=== PATIENT | female | born 2000 | race Two or more races ===

== ENCOUNTER 2024-07-18 10:49 | Inpatient (IN) | payer OTHER ==
[~2024-07-18] VITALS: Ht 165.1 cm; Wt 59.0 kg
--- NOTE | 2024-07-18 11:16 | NUR ---
PACIENTE ALERTA Y ORIENTADA X 3. REFIERE 1 MES CON ASMA
[2024-07-18] MEDS ORDERED: PROAIR RESPICL90 MCG (11:17)
[2024-07-18] MEDS ORDERED: BUDESONIDE0.25 MG/2 (11:17)
[2024-07-18] MEDS ORDERED: METHYLPREDNISOLONE SOD SUCC 40 MG VIAL IM ONE (12:00)
[2024-07-18] MEDS ORDERED: MAGNESIUM SULFATE IN WATER 2 GM/50 ML PIGGYBAG IV ONE (12:00)
[2024-07-18] MEDS ORDERED: LEVALBUTEROL HCL 0.63 MG/3 ML SOLUTION IH SCH (12:15)
[2024-07-18] MEDS ORDERED: IPRATROPIUM BROMIDE 0.5 MG/2.5 ML AMPUL.NEB IH ONE (12:15)
[2024-07-18 12:29] LABS: ABG PH 7.451 (7.35-7.45); ABG PO2 108.7 mmHg (80-100); ABG pCO2 26.6 mmHg (35-45); BASE EXCESS -4.1 mmol/l; BICARBONATE 18.2 mmol/l (23-25); SaO2 98.4 %
[2024-07-18 12:42] LABS: o2 21 %
[2024-07-18 12:43] LABS: allen test SATISFACTORY; puncture site RADIAL RIGHT
[2024-07-18 12:47] LABS: HEMATOCRIT 31.2 % (36.0-45.00); HEMOGLOBIN 10.2 g/dL (12.0-15.00); MEAN CORPUSCULAR HGB CONC 32.7 g/dl (32.0-36.0); PLATELET COUNT 432 K/uL (150-450); RED BLOOD COUNT 4.86 M/uL (4.00-6.00); RED CELL DISTRIBUTION WIDTH 15.8 % (11.5-14.5)
[2024-07-18 12:48] LABS: MEAN CELL VOLUME 64.2 fL (80.00-100.00)
--- NOTE | 2024-07-18 13:42 | NUR ---
SE ORIENTA A PACIENTE SOBRE TRATAMIENTO MEDICO LA CUAL INDICA ENTENDER Y ACEPTAR. SE COLECTAN MUESTRAS DE LAB BAJO MEDIDAS ASEPTICAS, PERSONAL DE TERAPIA ADMINISTRA LAS MISMAS Y REALIZA ABG.
[2024-07-18] MEDS ORDERED: AZITHROMYCIN 500 MG in DEXTROSE 5 % IN WATER 250 ML IV SCH (19:34)
[2024-07-18] MEDS ORDERED: MONTELUKAST SODIUM 10 MG TABLET PO SCH (19:34)
[2024-07-18] MEDS ORDERED: FAMOTIDINE/PF 20 MG in 0.9 % SODIUM CHLORIDE 8 ML IV PUSH SCH (19:35)
[2024-07-18] MEDS ORDERED: FLUTICASONE PROPIONATE 50 MCG SPRAY NASAL SCH (19:35)
[2024-07-18] MEDS ORDERED: 0.9 % SODIUM CHLORIDE 1,000 ML IV SCH (19:45)
[2024-07-18] MEDS ORDERED: ACETAMINOPHEN 500 MG GEL..CAP PO PRN (19:45)
[2024-07-18] MEDS ORDERED: GUAIFEN/DEXTROMETHORPHAN/PE 10 ML BLIST.PACK PO SCH (21:00)
[2024-07-18] MEDS ORDERED: IPRATROPIUM/ALBUTEROL SULFATE 3 ML AMPUL.NEB IH SCH (21:00)
[2024-07-18 21:13] LABS: INR 0.99; PARTIAL THROMBOPLASTIN TIME 26.4 SECONDS (22.0-34.0); PROTHROMBIN TIME 10.8 SECONDS (9.0-11.5)
[2024-07-18 21:19] LABS: ALBUMIN 4.5 gm/dL (3.4-5.0); BILIRUBIN TOTAL 0.71 mg/dL (0.3-1.2); CALCIUM 9.7 mg/dL (8.5-10.1); CREATININE SERUM 0.67 mg/dL (0.55-1.02); GFR 108.13; GLOBULINA 4.3 G/DL (2.4-3.5); POTASSIUM 3.44 mEq/L (3.5-5.1); TOTAL PROTEIN 8.8 gm/dL (6.4-8.2)
[2024-07-18 21:38] LABS: PH,URINE 5.5 (5.0-8.0); URINE APPEARANCE Clear; URINE BILIRRUBIN Negative (NEGATIVE); URINE BLOOD Negative; URINE COLOR Yellow; URINE GLUCOSE Negative (NEGATIVE); URINE KETONE Negative (NEGATIVE); URINE LEUKOCYTE Negative; URINE NITRATE Negative; URINE PROTEIN Negative (NEGATIVE); URINE UROBILINOGEN 0.2 E.U./dl
[2024-07-18 21:42] LABS: URINE BACTERIA 25.1 uL (0.0-1933); URINE EPITHELIAL CELLS 2.4 uL (0.0-38.8)
[2024-07-18 21:47] LABS: URINE RBC 1.8 uL (0.0-20.8); URINE WBC 1.6 uL (0.0-23.2)
[2024-07-18 23:00] VITALS: BP 100/66; O2SAT 99
[2024-07-19] MEDS ORDERED: METHYLPREDNISOLONE SOD SUCC 40 MG VIAL IV SCH ×2 (01:00→17:00)
[2024-07-19 04:15] VITALS: BP 100/70
[2024-07-19] MEDS ORDERED: FLUOXETINE HCL 20 MG CAPSULE PO SCH (09:00)
[2024-07-19 09:16] VITALS: BP 93/62; O2SAT 99
[2024-07-19 15:07] LABS: MYCOPLASMA PNEUMONIAE IGM NON REACTIVE (NO REACTIVE)
[2024-07-19] MEDS ORDERED: FLUTICASONE PROPIONATE 50 MCG SPRAY NASAL SCH (17:00)
[2024-07-19 18:12] VITALS: BP 112/72; O2SAT 99
[2024-07-20 01:30] VITALS: BP 106/63
[2024-07-20] MEDS ORDERED: ORPHENADRINE CITRATE 30 MG/ML AMPUL IV STA (07:32)
[2024-07-20 08:00] VITALS: BP 119/70; O2SAT 100
[2024-07-20] MEDS ORDERED: VENTOLIN HFA18 GM IH (08:28)
== END 2024-07-20 12:35 | disposition home or self-care (01) | DRG 203 ==
LOC: ER 10:51 → MEDJ 19:58 → MEDI 07-19 12:28
PROVIDERS: General Practice; Internal Medicine; ADMIT Internal Medicine; ATTEND Internal Medicine
PROC: 3E0F7GC Introduction of Other Therapeutic Substance into Respiratory Tract, Via Natural or Artificial Opening (ICD-10-PCS; principal; 2024-07-18)
DX: J45.41 Moderate persistent asthma with (acute) exacerbation (principal)